=== PATIENT | female | born 1940 | race Caucasian/White ===

== ENCOUNTER 2016-06-28 09:57 | Inpatient (IN) | payer MEDICARE, BC ==
[~2016-06-28] VITALS: Ht 157.5 cm; Wt 67.1 kg
[2016-06-28] MEDS ORDERED: CALC0.25 PO (10:30)
[2016-06-28] MEDS ORDERED: ATOR20TA15 PO (10:30)
[2016-06-28] MEDS ORDERED: VALS1TAB70 PO (10:30)
[2016-06-28] MEDS ORDERED: LEVO.075 PO (10:30)
[2016-06-28] MEDS ORDERED: AMLO10TA2 PO (10:30)
[2016-06-28] MEDS ORDERED: ATEN50TA PO (10:30)
[2016-07-17] MEDS ORDERED: VANCOMYCIN 1000 MG/NS 250 ML (for <70 kg) IV SCH ×2 (06:00)
[2016-07-17] MEDS ORDERED: CHLORHEXIDINE GLUCONATE 2 % 1 PACK (2 CLOTHS) TOPICAL PRN (06:00)
[2016-07-17] MEDS ORDERED: POVIDONE IODINE 7.5% SCRUB 118 ML BOTTLE TOPICAL SCH (06:00)
[2016-07-17] MEDS ORDERED: POVIDONE IODINE 5% (ANTISEPSIS KIT) 4 APPLICATIONS EACH NARE PRN (06:00)
[2016-07-17] MEDS ORDERED: ceFAZolin 2 GM PREMIX 50 ML IV SCH (06:00)
[2016-07-17] MEDS ORDERED: SODIUM CHLORID 0.9% 500 ML IV PRN (06:00)
[2016-07-17] MEDS ORDERED: LACTATED RINGER'S 1000 ML IV PRN (06:00)
[2016-07-17] MEDS ORDERED: DEXAMETHASONE SOD PHOS 4 MG/ML VIAL IV SCH (06:00)
[2016-07-17] MEDS ORDERED: INSULIN HUMAN REGULAR 1,000 UNITS/10 ML VIAL SQ PRN (06:00)
[2016-07-17] MEDS ORDERED: METOPROLOL TARTRATE 25 MG TAB PO PRN (06:00)
[2016-07-17 06:30] VITALS: BP 147/69; PULSE 54; RESP 20; TEMP 98.5; O2SAT 98
[2016-07-17] MEDS ORDERED: DEXAMETHASONE SOD PHOS 20 MG/5 ML VIAL ONE (06:33)
--- NOTE | 2016-07-17 06:46 | HHI.DCPOC ---
Discharge Care Plan Diagnosis: (1) Primary localized osteoarthrosis, lower leg (2) Status post total knee replacement, left Your Health Problems Are: Difficulty with ADL Goals to Promote Your Health * To prevent worsening of your condition and complications * To maintain your health at the optimal level Directions to Meet Your Goals Take your medications as prescribed Follow your dietary instruction Follow activity as directed Keep your appointments as scheduled Take your immunizations and boosters as scheduled If your symptoms worsen call your PCP, if no PCP go to Urgent Care Center or Emergency Room Smoking is Dangerous to Your Health. Avoid second hand smoke Call the 24-hour hour crisis hotline for domestic abuse at Enzo Valencia July 17, 2016 06:46
--- NOTE | 2016-07-17 06:47 | HHI.FF ---
Face to Face Verification Diagnosis: (1) Primary localized osteoarthrosis, lower leg (2) Status post total knee replacement, left Physical Therapy Gait training, Transfer training, bed to chair Knee: Total knee Left LE Weight Bearing: WB as tolerated Left LE Range of Motion: Active ROM Nursing Nursing: Jasmine teaching, Dressing changes Dressing Changes: Daily dressing change I have seen patient Gavi Payne on 07/17/16. My clinical findings support the need for the requested home health care services because: Limited ability to care for self High risk of falls I certify that my clinical findings support that this patient is homebound because: Post-op weakness Unsteady gait/balance Ezno Valencia July 17, 2016 06:47
[2016-07-17] MEDS ORDERED: CPMMACHINE (06:48)
[2016-07-17] MEDS ORDERED: COMMODE 3-IN-11 MIS (06:48)
[2016-07-17] MEDS ORDERED: WALKER WHEELS/F1 MIS (06:48)
[2016-07-17] MEDS ORDERED: GENTAMICIN SULFATE 80 MG/2 ML VIAL ONE ×2 (07:01)
[2016-07-17] MEDS ORDERED: ACETAMINOPHEN 1000 MG/100 ML VIAL IV ONE (07:58)
[2016-07-17] MEDS ORDERED: MIDAZOLAM HCL 2 MG/2 ML VIAL ONE (07:58)
[2016-07-17] MEDS ORDERED: TRANEXAMIC ACID INJ 650 MG in SODIUM CHLORIDE 0.9% INJ 100 ML IV SCH ×2 (08:30→11:30)
[2016-07-17] MEDS ORDERED: ROPIVACAINE PERI-ARTICULAR INJECTION. P-ARTICULR SCH ×5 (08:30)
--- NOTE | 2016-07-17 09:58 | PD.OP ---
cc: Oscar Zarco MD Operative Report Date of Surgery: July 17, 2016 Preoperative Diagnosis: Left knee severe osteoarthritis Postoperative Diagnosis: Same Procedure: Left total knee arthroplasty Anesthesia: Gen. and adductor canal block Surgeon: Oscar Zarco Director Marketing Analytics(s): CANDIDO Miller The surgical procedure was assisted by my Advanced Registered Nurse Practitioner. My TIRE BUFFER presence was necessary throughout this case for the manipulation and positioning of the surgical extremity. My TIRE BUFFER was assisting me throughout the duration of this procedure. The skill set of an Advance Registered Nurse Practitioner was medically necessary to complete this procedure. During the surgical case, the surgical scrub technologist was working at the back table and the Advance Registered Nurse Practitioner was directly assisting me. Operation and Findings: IMPLANTS: DePuy Attune: Patella: size 32. Femur, posterior stabilized size 5 narrow. Tibia, rotating platform size 4. Tibial insert, rotating platform, posterior stabilized size 6 mm thickness. ESTIMATED BLOOD LOSS: 150 cc TOURNIQUET TIME: 37 minutes at 250 mmHg pressure. JUSTIFICATION FOR PROCEDURE: The patient has end-stage osteoarthritis to the knee. There is an attached conservative measures pathway form in the chart that describes the nonoperative measures that were undertaken prior to consideration of surgical management. The patient understood the risks and benefits of surgical management. See my office notes for further details PROCEDURE: The patient was brought back to the operative theatre. Adequate anesthesia was obtained. The patient received intravenous vancomycin and Ancef. The lower extremity was prepped and draped in the usual sterile fashion.The leg was exsanguinated, the tourniquet was raised. A standard anterior incision was performed followed by medial parapatellar arthrotomy was performed. End-stage arthritis was identified. Osteotomy of the patella was performed. We drilled holes for the patella. We trialed the patella component. We placed an intramedullary guide into the distal femur. We ultimately resected 12 mm off of the distal femur in 5 degrees of valgus. The remnants of the ACL and PCL were resected. Osteotomy of the proximal tibia was performed, resecting 5 mm off of the medial side. This was done with 3 degrees of posterior slope using an extramedullary guide. The distal end of the guide was placed in the mid aspect of the ankle. The femur was sized, and four chamfer cuts were completed in 3 of external rotation. We then cut the central box in the distal femur to replace the PCL. We resected the remnants of the menisci and removed osteophytes off of the femur and tibia. We then trialed the knee. We punched the tibia for the keel, and then used standard technique to cement in components. Excess cement was removed. We trialed the knee again and the final polyethylene thickness was chosen to provide extension to 0 degrees, and flexion of 140 degrees to gravity. The ligaments were appropriately balanced. Lateral release was necessary to obtain excellent patellofemoral tracking. The tourniquet was released and adequate hemostasis was obtained. An intra- articular injection of a ropivacaine cocktail was injected. The posterior knee was inspected for excess cement, which was removed. The final polyethylene was put into position after thorough irrigation. We then closed deep fascia with a #2 Stratafix followed by skin with 2-0 Vicryl followed by vinita. Postop plan is to weight-bear as tolerated. DVT prophylaxis will be performed with Marleen, SHAGUFTA stephens, early mobilization, and Lovenox followed by aspirin. Note that I talked to the inpatient pharmacist. They recommended reducing the daily Lovenox dose to 30 mg rather than 40 daily due to renal insufficiency. Oscar Zarco MD July 17, 2016 09:58
[2016-07-17] MEDS ORDERED: ONDANSETRON HCL 4 MG/2 ML VIAL IVP PRN (10:00)
[2016-07-17] MEDS ORDERED: ACETAMINOPHEN/HYDROcodone 325 MG/5 MG TAB PO PRN (10:00)
[2016-07-17] MEDS ORDERED: ASPI325T PO (10:00)
[2016-07-17] MEDS ORDERED: NALOXONE HCL 0.4 MG/ML AMP IV PRN (10:00)
[2016-07-17] MEDS ORDERED: NORC5TAB PO (10:00)
[2016-07-17] MEDS ORDERED: ZOLPIDEM TARTRATE 5 MG TAB PO PRN (10:00)
[2016-07-17] MEDS ORDERED: BISACODYL 10 MG SUPP RECTAL PRN (10:00)
[2016-07-17] MEDS ORDERED: ENOX30P SQ ×2 (10:00→10:14)
[2016-07-17] MEDS ORDERED: SODIUM CHLORIDE 0.9% FLUSH 10 ML FLUSH IV FLUSH PRN (10:00)
[2016-07-17] MEDS ORDERED: MORPHINE SULFATE 4 MG/ML INJ IV PUSH PRN (10:00)
[2016-07-17] MEDS ORDERED: diphenhydrAMINE HCL 50 MG/ML VIAL IV PRN (10:00)
[2016-07-17] MEDS ORDERED: ALUMINUM/MAGNESIUM/SIMETH 30 ML CUP PO PRN (10:00)
[2016-07-17] MEDS ORDERED: MAGNESIUM HYDROXIDE SUSP 30 ML CUP PO PRN (10:00)
[2016-07-17] MEDS ORDERED: Post-op Orders (for Pharmacy) MISC XX ONE (10:15)
[2016-07-17] MEDS ORDERED: BUPIVACAINE LIPOSOME PF 1.3% 20 ML VIAL ONE (10:20)
[2016-07-17] MEDS ORDERED: DO NOT ADM ANY ANTICOAGULANT DRUGS PRN (10:45)
[2016-07-17] MEDS ORDERED: *morphine SULFATE 8 MG/ML PERIprocedure ONLY ONE ×2 (10:57→12:26)
[2016-07-17] MEDS: SODIUM CHLOR 0.9% 1000 ML INJ 1,000 ML IV SCH ×3 (11:00→23:02)
--- NOTE | 2016-07-17 11:15 | RADRPT ---
EXAM DATE/TIME: 07/17/2016 10:40 [facility] COMPARISON: No previous studies available for comparison. INDICATIONS : Post op knee. MEDICAL HISTORY : None. SURGICAL HISTORY : None. ENCOUNTER: Initial ACUITY: 1 day PAIN SCORE: 7/10 LOCATION: Left Knee. FINDINGS: AP and lateral views of the knee following arthroplasty reveals a prosthesis in anatomic alignment. F racture is not appreciated. Surgical drain is evident CONCLUSION: Status post total knee arthroplasty. Saul Beltrán MD FACR Board Certified Radiologist. This report was verified electronically.
[2016-07-17] MEDS ORDERED: ePHEDrine/NS 25 MG/5 ML SYR IV ONE (12:00)
[2016-07-17] MEDS ORDERED: PROPOFOL 200 MG/20 ML AMP IV ONE (12:00)
[2016-07-17] MEDS ORDERED: LACTATED RINGER'S 1000 ML INJ 1,000 ML IV ONE (12:00)
[2016-07-17 14:06] VITALS: BP 117/67; PULSE 68; RESP 16; TEMP 95.5; O2SAT 93
[2016-07-17 16:00] VITALS: BP 113/61; PULSE 64; RESP 18; TEMP 97; O2SAT 93
--- NOTE | 2016-07-17 16:15 | PD.CONS ---
[facility] By [facility] Reason for Consult Medical management Primary Care Physician Angella Watson MD Diagnoses: History of Present Illness The patient is a 75-year-old female with past topical history of osteoarthritis who is presenting to the hospital for elective left knee replacement. The patient says she was very active growing up and began having problems with her knees many years ago. She had her right knee replaced last year and did very well with that so she decided to get her left knee replaced. She has been ambulating without a walker or a cane. She tends to avoid stairs. She does not take any pain medications. She has been doing outpatient physical therapy recently. She denies any recent medical problems. She says she is followed by a kidney doctor and that she has stage II renal disease which might be secondary to hypertension. She tries to avoid salt in her food. She believes she has white coat syndrome. She tolerated the surgery well and her pain was controlled. She had already worked with physical therapy and was hungry. She denied any problems with constipation. Review of Systems Except as stated in HPI: all other systems reviewed are Neg Past Family Social History Allergies: Coded Allergies: Sulfa (Unverified Allergy, Severe, HIVES, 07/17/16) Past Medical History Chronic renal disease, stage 2 Hypertension Hyperlipidemia Hypothyroidism Osteoarthritis Past Surgical History Total abdominal hysterectomy with bilateral salpingo-oophorectomy Tubal ligation many years ago Cataract surgery Bilateral breast augmentation Active Ordered Medications Current Medications Medications (Trade) Dose Ordered Sig/Julien Route Start Time Stop Time Status Last Admin Povidone Iodine 1 applic 1 applic ONCE TOPICAL 07/17/16 06:00 07/20/16 05:59 07/17/16 06:30 Lactated Ringer's 1,000 ml @ 30 mls/hr Q24H PRN IV 07/17/16 06:00 07/20/16 05:59 07/17/16 06:55 (NS 500 ml Inj) 500 ml @ 30 mls/hr [id number] PRN IV 07/17/16 06:00 07/20/16 05:59 (Norvasc) 10 mg HS PO 07/17/16 21:00 (Tenormin) 50 mg HS PO 07/17/16 21:00 (Lipitor) 20 mg HS PO 07/17/16 21:00 (Rocaltrol) 0.25 mcg DAILY PO 07/18/16 09:00 (Synthroid) 75 mcg DAILY@0600 PO 07/18/16 06:00 Valsartan 320 mg 320 mg HS PO 07/17/16 21:00 (NS 1000 ml Inj) 1,000 ml @ 100 mls/hr Q10H IV 07/17/16 11:00 07/17/16 11:00 (NS Flush) 2 ml UNSCH PRN IV FLUSH 07/17/16 10:00 Sodium Chloride 2 ml 2 ml BID IV FLUSH 07/17/16 21:00 (Ancef Inj/NS Inj) 100 ml @ 200 mls/hr Q6H IV 07/17/16 12:00 07/18/16 00:29 07/17/16 12:00 (Decadron Inj) 10 mg ONCE ONCE IV 07/18/16 07:45 07/18/16 07:46 (Lovenox Inj) 30 mg Q24H SQ 07/17/16 22:00 ([place] 5-325 Mg) 1 tab Q4H PRN PO 07/17/16 10:00 Acetaminophen/ Hydrocodone Bitart 2 tab 2 tab Q4H PRN PO 07/17/16 10:00 (Cyklokapron Inj/ NS Inj) 106.5 ml @ 200 mls/hr UNSCH IV 07/17/16 11:30 07/17/16 17:30 07/17/16 11:21 (Theragran M Tab) 1 tab BID PO 07/18/16 21:00 09/16/16 20:59 (Zofran Inj) 4 mg Q6H PRN IVP 07/17/16 10:00 (Colace) 100 mg BID PO 07/18/16 21:00 (Mag-Al Plus Susp Liq) 30 ml Q6H PRN PO 07/17/16 10:00 (Ambien) 5 mg HS PRN PO 07/17/16 10:00 (Dulcolax Supp) 10 mg DAILY PRN RECTAL 07/17/16 10:00 (Milk Of Magnesia Liq) 30 ml DAILY PRN PO 07/17/16 10:00 (Narcan Inj) 0.4 mg UNSCH PRN IV 07/17/16 10:00 (Benadryl Inj) 25 mg Q6H PRN IV 07/17/16 10:00 (Morphine Inj) 2 mg Q3H PRN IV PUSH 07/17/16 10:00 Miscellaneous Information ALL NURSING DEPARTME... UNSCH PRN .XX 07/17/16 10:45 07/18/16 10:44 Family History Parkinson's disease Social History The patient does not smoke. She drinks socially. Physical Exam Vital Signs Vital Signs Date Time Temp Pulse Resp B/P Pulse Ox O2 Delivery O2 Flow Rate FiO2 07/17/16 13:40 97.5 66 16 125/58 95 Room Air 07/17/16 13:00 65 15 123/57 94 Room Air 07/17/16 12:31 15 07/17/16 12:30 97.4 65 15 122/59 100 Nasal Cannula 2 07/17/16 12:15 63 15 123/60 99 Nasal Cannula 2 07/17/16 12:00 65 15 120/64 98 Nasal Cannula 2 07/17/16 11:45 64 15 121/66 97 Nasal Cannula 2 07/17/16 11:30 63 15 124/63 96 Nasal Cannula 2 07/17/16 11:15 62 15 123/61 95 Nasal Cannula 2 07/17/16 11:02 15 07/17/16 11:00 60 14 120/59 100 Nasal Cannula 3 07/17/16 10:45 57 14 119/60 99 Nasal Cannula 3 07/17/16 10:30 56 13 116/58 98 Nasal Cannula 3 07/17/16 10:20 97.4 54 12 111/57 100 Nasal Cannula 4 07/17/16 06:30 98.5 54 20 147/69 98 Physical Exam GENERAL: This is a well-nourished, well-developed patient, in no apparent distress. SKIN: No rashes, ecchymoses or lesions. Cool and dry. HEAD: Atraumatic. Normocephalic. No temporal or scalp tenderness. EYES: Pupils equal round and reactive. Extraocular motions intact. No scleral icterus. No injection or drainage. ENT: Nose without bleeding, purulent drainage or septal hematoma. Throat without erythema, tonsillar hypertrophy or exudate. Uvula midline. Airway patent. NECK: Trachea midline. No JVD or lymphadenopathy. Supple, nontender, no meningeal signs. CARDIOVASCULAR: Regular rate and rhythm without murmurs, gallops, or rubs. RESPIRATORY: Clear to auscultation. Breath sounds equal bilaterally. No wheezes , rales, or rhonchi. GASTROINTESTINAL: Abdomen soft, non-tender, nondistended. No hepato-splenomegaly , or palpable masses. No guarding. MUSCULOSKELETAL: Extremities without clubbing, cyanosis, or edema. Left knee is bandaged. Positive pedal pulses. NEUROLOGICAL: Awake and alert. Cranial nerves II through XII intact. Motor and sensory grossly within normal limits. Five out of 5 muscle strength in all muscle groups. Normal speech. PSYCH: Mood and consult appropriate. Laboratory Laboratory Tests Test 07/17/16 06:40 Blood Type A POSITIVE Antibody Screen NEGATIVE Imaging Last Impressions Knee X-Ray 07/17/16 0951 Signed Impressions: Service Date/Time: Sunday, July 17, 2016 10:40 - CONCLUSION: Status post total knee arthroplasty. Saul Beltrán MD Assessment and Plan Problem List: (1) HTN (hypertension) ICD Code: I10 Status: Acute (2) Hypothyroidism ICD Code: E03.9 Status: Acute (3) Status post total knee replacement, left ICD Code: Z96.652 Status: Acute Assessment and Plan Osteoarthritis The patient is status post elective left knee replacement 07/17/16. She tolerated the procedure well. - Wound care, weightbearing and anticoagulation per orthopedic surgery. - Pain control with a bowel regimen. - Incentive spirometry. - Physical therapy. Hypertension Blood pressure has been well controlled. - continue home regimen. - clonidine and pain control as needed. Chronic renal disease Stage II. - Outpatient follow-up with nephrology. - Avoid nephrotoxic agents. PPx: Per surgery. Discussed Condition With Pt, family. Michele Garcia DO July 17, 2016 16:15
[2016-07-17] MEDS: SENNOSIDES 8.6 MG TAB PO SCH (16:30)
[2016-07-17 20:10] VITALS: BP 115/70; PULSE 72; RESP 16; TEMP 97.3; O2SAT 94
[2016-07-17] MEDS: SODIUM CHLORIDE 0.9% FLUSH 10 ML FLUSH IV FLUSH SCH (20:52)
[2016-07-17] MEDS ORDERED: ATENOLOL 50 MG TAB PO SCH (21:00)
[2016-07-17] MEDS ORDERED: VALSARTAN 160 MG TAB PO SCH (21:00)
[2016-07-17] MEDS ORDERED: ATORVASTATIN 20 MG TAB PO SCH (21:00)
[2016-07-17] MEDS ORDERED: ENOXAPARIN SODIUM 30 MG/0.3 ML SYRINGE SQ SCH (22:00)
[2016-07-17 23:15] VITALS: BP 113/62; PULSE 63; RESP 17; TEMP 97.3; O2SAT 94
[2016-07-18 04:35] VITALS: BP 110/57; PULSE 66; RESP 18; TEMP 97.9; O2SAT 93
[2016-07-18] MEDS ORDERED: LEVOTHYROXINE SODIUM 75 MCG TAB PO SCH (06:00)
[2016-07-18 07:36] LABS: HEMATOCRIT 25.6 % (35.0-46.0); MEAN CELL VOLUME 92.8 FL (80.0-100.0); MEAN CORPUSCULAR HEMOGLOBIN 30.2 PG (27.0-34.0); MEAN CORPUSCULAR HGB CONC 32.6 % (32.0-36.0); PLATELET COUNT 139 TH/MM3 (150-450); RED BLOOD COUNT 2.75 MIL/MM3 (4.00-5.30); REVIEW FLAG FINAL; WHITE BLOOD COUNT 9.6 TH/MM3 (4.0-11.0)
[2016-07-18] MEDS ORDERED: DEXAMETHASONE SOD PHOS 20 MG/5 ML VIAL IV ONE (07:45)
[2016-07-18 07:57] LABS: BICARBONATE 22.5 MEQ/L (21.0-32.0); POTASSIUM 4.7 MEQ/L (3.5-5.1)
[2016-07-18 08:00] VITALS: BP 158/69; PULSE 65; RESP 16; TEMP 98; O2SAT 95
[2016-07-18] MEDS: SENNOSIDES 8.6 MG TAB PO SCH (08:39)
[2016-07-18] MEDS: SODIUM CHLORIDE 0.9% FLUSH 10 ML FLUSH IV FLUSH SCH (08:39)
[2016-07-18] MEDS: ACETAMINOPHEN/HYDROcodone 325 MG/5 MG TAB PO PRN ×2 (08:40→13:51)
[2016-07-18] MEDS ORDERED: CALCITRIOL 0.25 MCG CAP PO SCH (09:00)
--- NOTE | 2016-07-18 10:56 | HHI.PR ---
Subjective Remarks very motivated already up and ambulated with walker Objective Vitals Vital Signs Date Time Temp Pulse Resp B/P Pulse Ox O2 Delivery O2 Flow Rate FiO2 07/18/16 04:35 97.9 66 18 110/57 93 07/17/16 23:15 97.3 63 17 113/62 94 07/17/16 20:10 97.3 72 16 115/70 94 07/17/16 16:00 97.0 64 18 113/61 93 07/17/16 14:06 95.5 68 16 117/67 93 07/17/16 13:40 97.5 66 16 125/58 95 Room Air 07/17/16 13:00 65 15 123/57 94 Room Air 07/17/16 12:31 15 07/17/16 12:30 97.4 65 15 122/59 100 Nasal Cannula 2 07/17/16 12:15 63 15 123/60 99 Nasal Cannula 2 07/17/16 12:00 65 15 120/64 98 Nasal Cannula 2 07/17/16 11:45 64 15 121/66 97 Nasal Cannula 2 07/17/16 11:30 63 15 124/63 96 Nasal Cannula 2 07/17/16 11:15 62 15 123/61 95 Nasal Cannula 2 07/17/16 11:02 15 07/17/16 11:00 60 14 120/59 100 Nasal Cannula 3 I/O 07/17/16 07/17/16 07/17/16 07/18/16 07/18/16 07/18/16 07:00 15:00 23:00 07:00 15:00 23:00 Intake Total 2170 ml 680 ml 1020 ml Output Total 600 ml 300 ml 175 ml Balance 1570 ml 380 ml 845 ml Intake Oral 420 ml 480 ml 120 ml IV Total 150 ml 200 ml 900 ml Other 1600 ml Output Urine Total 550 ml 300 ml 175 ml Estimated Blood Loss 50 ml # Voids 0 # Bowel Movements 0 0 0 Result Diagram: 07/18/1670207/18/16702 Imaging Last Impressions Knee X-Ray 07/17/16 0951 Signed Impressions: Service Date/Time: Sunday, July 17, 2016 10:40 - CONCLUSION: Status post total knee arthroplasty. Saul Beltrán MD Objective Remarks awake and alert, NAD anicteric lungs clear regular rhthm abdomen soft, nontender left knee- post op dressing in place, no calf tenderess no pedal edema Procedures 07/17- left total knee arthroplasty Urinary Catheter: Yes Assessment to: Remove Date of Removal: July 18, 2016 A/P Problem List: (1) HTN (hypertension) ICD Code: I10 Status: Acute (2) Hypothyroidism ICD Code: E03.9 Status: Acute (3) Status post total knee replacement, left ICD Code: Z96.652 Status: Acute Assessment and Plan S/P Left THR 07/17 for Osteoarthritis - Wound care, weightbearing and anticoagulation per orthopedic surgery. - Pain control with a bowel regimen. - Incentive spirometry. - Physical therapy. Hypertension Blood pressure has been well controlled. - continue home regimen. - clonidine and pain control as needed. Chronic renal disease Stage II. - Outpatient follow-up with nephrology. - Avoid nephrotoxic agents. PPx: Per surgery. DC planning - PCP- Brian Chowdhury MD July 18, 2016 10:56
[2016-07-18 12:00] VITALS: BP 109/50; PULSE 58; RESP 16; TEMP 97; O2SAT 96
--- NOTE | 2016-07-18 13:21 | PD.ORT.PN ---
Subjective Post Op Day #: 1 Subjective Remarks The patient is OOB in chair with minimal pain to the left knee. Patient has not voided. Patient is ambulatory. Patient requesting to go home today with home health. Objective Vitals Vital Signs Date Time Temp Pulse Resp B/P Pulse Ox O2 Delivery O2 Flow Rate FiO2 07/18/16 08:00 98.0 65 16 158/69 95 07/18/16 04:35 97.9 66 18 110/57 93 07/17/16 23:15 97.3 63 17 113/62 94 07/17/16 20:10 97.3 72 16 115/70 94 07/17/16 16:00 97.0 64 18 113/61 93 07/17/16 14:06 95.5 68 16 117/67 93 07/17/16 13:40 97.5 66 16 125/58 95 Room Air I/O 07/17/16 07/17/16 07/17/16 07/18/16 07/18/16 07/18/16 07:00 15:00 23:00 07:00 15:00 23:00 Intake Total 2170 ml 680 ml 1020 ml Output Total 600 ml 300 ml 175 ml Balance 1570 ml 380 ml 845 ml Intake Oral 420 ml 480 ml 120 ml IV Total 150 ml 200 ml 900 ml Other 1600 ml Output Urine Total 550 ml 300 ml 175 ml Estimated Blood Loss 50 ml # Voids 0 # Bowel Movements 0 0 0 Result Diagram: 07/18/16 0703 07/18/16 0703 Procedures Left TKA Objective Remarks The patient's dressing was changed with scant serosanguineous drainage. Incision is well approximated with surgical clips intact. No redness or s/s of infection. EHL/TA/G intact. 2+ pedal pulse. Calf is soft and nontender. Mild swelling. + SILT. Assessment & Plan Ortho Post Op Day #: 1 Problem List: Assessment and Plan POD #1: Left TKA 1. WBAT LLE 2. Lovenox for DVT prophylaxis. Lovenox dosing adjusted for kidney disease. 3. Ice to the left knee PRN 4. Stable for discharge home with home health today once she voids. Enzo Valencia July 18, 2016 13:20
[2016-07-18] MEDS ORDERED: MULTIVITAMINS/MINERALS THERAPEUTIC TAB PO SCH (21:00)
[2016-07-18] MEDS ORDERED: DOCUSATE SODIUM 100 MG CAP PO SCH (21:00)
--- NOTE | 2016-07-23 17:23 | HHI.DS ---
Discharge Summary Admission Date July 17, 2016 at 05:26 Discharge Date: July 18, 2016 Admitting Diagnosis Primary localized OA, lower leg Status post total knee replacement, left Diagnosis: (1) Primary localized osteoarthrosis, lower leg Diagnosis: Principal (2) Status post total knee replacement, left Diagnosis: Principal Procedures Left TKA Brief History This is a 75 year old female patient with sever OA of the left knee PE at Discharge The patient's dressing was changed with scant serosanguineous drainage. Incision is well approximated with surgical clips intact. No redness or s/s of infection. EHL/TA/G intact. 2+ pedal pulse. Calf is soft and nontender. Mild swelling. + SILT. Hospital Course The patient was admitted to the hospital with severe OA of the left knee to have a left TKA. The patient's surgery went well with no complications. The patient is WBAT post op. The patient is on a regular diet. The patient was placed on Lovenox for DVT prophylaxis. The normal dosing of Lovenox was reduced per pharmacy's recommendation secondary to history of renal failure. The patient was discharged home with home health and will f/u with Dr. Zarco in 1-2 weeks. Pt Condition on Discharge: Stable Discharge Disposition: Disch w/ Home Health Serv Discharge Instructions Diet Instructions: As Tolerated, No Restrictions Activities You Can Perform: Weight Bearing as Mike Activities to Avoid: Strenuous Activity Follow up Referrals: Orthopedics with Oscar Zarco MD [facility]/ with Nurse regional safety manager [phone] New Medications: Commode 3-in-1 (Commode 3-in-1) 1 Mis Mis 1 EA .ROUTE DIRECTED #1 Ref 0 EA CPM-Continuous Passive Motion Machine (CPM-Continuous Passive Motion Machine) 1 Ea Device 1 EA .ROUTE DIRECTED #1 Ref 0 EA Enoxaparin Inj (Lovenox Inj) 30 Mg/0.3 Ml Syr 30 MG SQ DAILY Blood Clot Prevention #20 Ref 0 SYRINGE Hydrocodone-Acetaminophen ([place]) 5-325 mg Tab 1-2 TAB PO Q4H PRN PAIN #60 Ref 0 TAB Walker with Front Wheels (Walker with Front Wheels) 1 Mis Mis 1 EA .ROUTE DIRECTED #1 Ref 0 EA Continued Medications: Amlodipine (Amlodipine) 10 Mg Tab 10 MG PO HS Blood Pressure Management #30 Ref 0 TAB Atenolol (Atenolol) 50 Mg Tab 50 MG PO HS Blood Pressure Management #30 Ref 0 TAB Atorvastatin (Atorvastatin) 20 Mg Tab 20 MG PO HS Cholesterol Management #30 Ref 0 TAB Calcitriol (Calcitriol) 0.25 Mcg Cap 0.25 MCG PO DAILY Calcium Supplement #30 Ref 0 CAP Levothyroxine (Synthroid) 75 Mcg Tab 75 MCG PO DAILY Thyroid #30 Ref 0 TAB Valsartan (Valsartan) 320 Mg Tab 320 MG PO HS #30 Ref 0 TAB Enzo Valencia July 23, 2016 17:23
== END 2016-07-18 16:23 | disposition home health service (06) | DRG 470 ==
LOC: HSDI 07-17 05:26 → N06B 07-17 14:14
PROVIDERS: ADMIT Orthopaedic Surgery; ATTEND Orthopaedic Surgery
PROC: 0SRD0J9 Replacement of Left Knee Joint with Synthetic Substitute, Cemented, Open Approach (ICD-10-PCS; principal; 2016-07-17 08:00)
DX: M17.9 Osteoarthritis of knee, unspecified (principal); I12.9 Hypertensive chronic kidney disease with stage 1 through stage 4 chronic kidney disease, or unspecified chronic kidney disease; N18.2 Chronic kidney disease, stage 2 (mild); E03.9 Hypothyroidism, unspecified; E78.5 Hyperlipidemia, unspecified; Z96.651 Presence of right artificial knee joint
CPT/HCPCS: 73560; 80048; 85027; 86850; 86900; 86901; 94150; C1776; C9290; J0131; J0171; J0690; J0735; J1100; J1580; J1650; J1885; J2250; J2270; J2795; J3010; J3370; J7030; J7050; J7120; L1830

== ENCOUNTER → 2016-06-28 | Outpatient (CLI) | payer MEDICARE, BC ==
[~2016-06-28] MED LIST: 1-ME1LIQ PO; AMLO10TA2 PO; ASPI325T PO; ATEN50TA PO; ATOR20TA PO; ATOR20TA15 PO; CALC0.25 PO; COMMODE 3-IN-11 MIS; CPMMACHINE; ENOX30P SQ; ENOX40P SQ; LEVO.075 PO; LORTA5 PO; NORC5TAB PO; SYNT75TA PO; VALS1TAB70 PO; WALKER WHEELS/F1 MIS; Z.0.COMMODE-3:1; Z.0.CPM; Z.0.WALKERFRONT
[2016-06-28 10:53] LABS: AUTOMATED NEUTROPHIL # 4.7 TH/MM3 (1.8-7.7); BASOPHIL # 0.1 TH/MM3 (0-0.2); BASOPHIL % 0.8 % (0.0-2.0); EOSINOPHIL # 0.1 TH/MM3 (0-0.4); EOSINOPHIL % 0.9 % (0.0-4.0); HEMATOCRIT 34.5 % (35.0-46.0); HEMO FLAGS DIFF FINAL; LYMPH % 18.4 % (9.0-44.0); LYMPHOCYTE # 1.2 TH/MM3 (1.0-4.8); MEAN CELL VOLUME 92.6 FL (80.0-100.0); MEAN CORPUSCULAR HEMOGLOBIN 30.9 PG (27.0-34.0); MEAN CORPUSCULAR HGB CONC 33.4 % (32.0-36.0); MONO % 7.2 % (0.0-8.0); NEUT % 72.7 % (16.0-70.0); PLATELET COUNT 219 TH/MM3 (150-450); RED BLOOD COUNT 3.72 MIL/MM3 (4.00-5.30); RED CELL DISTRIBUTION WIDTH 13.6 % (11.6-17.2); WHITE BLOOD COUNT 6.4 TH/MM3 (4.0-11.0)
[2016-06-28 11:02] LABS: APTT (PATIENT) 23.6 SEC (24.3-30.1); PROTHROMBIN TIME - PATIENT 10.7 SEC (9.8-11.6)
[2016-06-28 11:07] LABS: BLOOD, URINE NEG (NEG); COMMENT (UR) CULT NOT INDICATED; CULTURE IF INDICATED CULT NOT INDICATED; GLUCOSE,URINE NEG (NEG); HYALINE CAST, URINE 12 /lpf (RARE); KETONE, URINE NEG (NEG); MUCUS URINE FEW /lpf (OCC); NITRITE,URINE NEG (NEG); PH, URINE 5.5 (5.0-8.5); SQUAMOUS EPITHELIAL CELL URINE <1 /hpf (0-5); URINE COLOR YELLOW (YELLW/STRAW)
[2016-06-28 11:16] LABS: WESTERGREN SEDIMENTATION RATE 28 mm/hr (0-30)
[2016-06-28 11:29] LABS: ALKALINE PHOSPHATASE 76 U/L (45-117); ALT (GPT) 21 U/L (10-53); ANION GAP 8 MEQ/L (5-15); AST (GOT) 20 U/L (15-37); BICARBONATE 26.4 MEQ/L (21.0-32.0); BLOOD UREA NITROGEN 41 MG/DL (7-18); CHLORIDE 106 MEQ/L (98-107); GLOMERULAR FILTRATION RATE 22 ML/MIN (>89); GLUCOSE,FASTING 92 MG/DL (74-99); POTASSIUM 5.1 MEQ/L (3.5-5.1); SODIUM (NA) 140 MEQ/L (136-145); TOTAL BILIRUBIN ADULT 0.6 MG/DL (0.2-1.0)
--- NOTE | 2016-06-28 12:52 | RADRPT ---
EXAM DATE/TIME: 06/28/2016 11:39 [facility] COMPARISON: CHEST PA & LAT, August 07, 2015, 9:30. INDICATIONS : Evaluate for pneumonia, pneumothorax and communicable diseases. Pre-op knee surgery MEDICAL HISTORY : None. SURGICAL HISTORY : Breast implants ENCOUNTER: Initial ACUITY: 1 day PAIN SCORE: 0/10 LOCATION: chest FINDINGS: PA and lateral views of the chest demonstrate the lungs to be symmetrically aerated without evidence of mass, infiltrate or effusion. The cardiomediastinal contours are unremarkable. Osseous structure s are intact. CONCLUSION: No acute disease. Saul Beltrán MD FACR on June 28, 2016 at 12:50 Board Certified Radiologist. This report was verified electronically.
--- NOTE | 2016-06-28 13:47 | EKG ---
Date Performed: 06/28/2016 Time Performed: 11:06:14 PTAGE: 75 years EKG: SINUS BRADYCARDIA MARKED LEFT AXIS DEVIATION ABNORMAL ECG NO PREVIOUS TRACING DOCTOR: Darryn Bean Interpretating Date/Time 06/28/2016 13:46:30
== END ==
LOC: CPRE 09:48
PROVIDERS: ATTEND Orthopaedic Surgery
DX: Z01.810 Encounter for preprocedural cardiovascular examination (principal); Z01.811 Encounter for preprocedural respiratory examination; Z01.812 Encounter for preprocedural laboratory examination; Z01.818 Encounter for other preprocedural examination; M17.12 Unilateral primary osteoarthritis, left knee; Z96.60 Presence of unspecified orthopedic joint implant; M25.50 Pain in unspecified joint; Z79.01 Long term (current) use of anticoagulants; R94.31 Abnormal electrocardiogram [ECG] [EKG]
CPT/HCPCS: 36415; 71020; 80053; 81001; 85025; 85610; 85652; 85730; 93005